=== PATIENT | female | born 1940 | race Caucasian/White ===

== ENCOUNTER → 2017-02-06 | Outpatient (CLI) | payer OTHER, MEDICARE ==
[~2017-02-06] MED LIST: ACET-24 PO; ASPEC325 PO; CALC600T9 PO; FLUT50SP45; LEVO25TA PO; MELO15TA4 PO; ULT50X PO; ZOLP5TAB PO; meloxicam PO
--- NOTE | 2017-02-06 12:09 | DIAGNOSTIC IMAGING REPORT ---
LEG LENGTH STUDY (WHOLE LEG) CLINICAL HISTORY: LEG LENGTH DISCREPANCY COMPARISON STUDY: None FINDINGS: Total leg length right leg is 84.8 cm. Total length left leg is 84.3 cm. Discrepancy is 5 mm with the left leg shorter compared to the right. The bulk of this discrepancy is in the femoral leg length. Right femoral length is 46.8 cm. Left measures 46.3 cm IMPRESSION: 5 mm leg length discrepancy with the left length being shorter. The bulk of this discrepancy relates to a differential of femoral length as discussed Electronically signed by: Phan Napoles M.D. 02/06/2017 12:08 PM Dictated Date/Time: 02/06/2017 11:59 AM
== END | disposition home or self-care (01) ==
LOC: C.RADBC 11:16
PROVIDERS: ATTEND Anesthesiology
DX: M21.70 Unequal limb length (acquired), unspecified site (principal)

== ENCOUNTER 2017-06-30 08:33 | Inpatient (IN) | payer OTHER, MEDICARE ==
[2017-06-05 09:04] VITALS: BMI 22.0
--- NOTE | 2017-06-05 09:48 | PAT Medication Instructions ---
Service Date Jun 05, 2017. Current Home Medication List Calcium Carbonate-Vitamin D (Calcium + D), 1 TAB PO BID Fluticasone Propionate (Nasal) (Allergy Nasal Walling 24 Ho), 2 SPRAYS NA DAILY PRN for allergies Levothyroxine Sodium (Synthroid), 1 TAB PO QAM Meloxicam (Meloxicam), 1 TAB PO QAM Zolpidem Tartrate (Ambien), 5 MG PO HS PRN for Sleep Medication Instructions For Your Scheduled Surgery - Per surgeon's instructions: Meloxicam (Meloxicam), 1 TAB PO QAM - Hold the following medications the morning of surgery: Calcium Carbonate-Vitamin D (Calcium + D), 1 TAB PO BID - Take the following medications the morning of surgery with a sip of water OTHERWISE NOTHING TO EAT OR DRINK AFTER MIDNIGHT: Levothyroxine Sodium (Synthroid), 1 TAB PO QAM Fluticasone Propionate (Nasal) (Allergy Nasal Walling 24 Ho), 2 SPRAYS NA DAILY PRN for allergies - Take the following medications as scheduled the night before surgery: Zolpidem Tartrate (Ambien), 5 MG PO HS PRN for Sleep Calcium Carbonate-Vitamin D (Calcium + D), 1 TAB PO BID Fluticasone Propionate (Nasal) (Allergy Nasal Walling 24 Ho), 2 SPRAYS NA DAILY PRN for allergies If you have any questions please call us at [phone] or [phone] or [phone]
[2017-06-05 10:13] LABS: BASO % 1.3 %; BASO ABS # 0.09 K/uL (0-0.2); COMPLETE YES; EOS % 5.2 %; HEMATOCRIT 45.4 % (37-47); IG% 0.4 %; LYMPH % 26.8 %; LYMPH ABS # 1.85 K/uL (1.2-3.4); MEAN CELL VOLUME 92.8 fL (80-100); MEAN CORPUSCULAR HEMOGLOBIN 29.7 pg (25-34); MEAN CORPUSCULAR HGB CONC 31.9 g/dl (32-36); MEAN PLATELET VOLUME 9.2 fL (7.4-10.4); MONO % 8.8 %; NEUT % 57.5 %; PLATELET COUNT 371 K/uL (130-400); RED BLOOD COUNT 4.89 M/uL (4.2-5.4); WHITE BLOOD COUNT 6.91 K/uL (4.8-10.8)
--- NOTE | 2017-06-05 10:23 | DIAGNOSTIC IMAGING REPORT ---
TWO VIEW CHEST CLINICAL HISTORY: Preoperative examination. FINDINGS: PA and lateral chest radiographs are obtained. No prior studies are available for comparison at the time of dictation. The cardiomediastinal silhouette is unremarkable. There is mild atherosclerotic calcification of the thoracic aorta. The lungs and pleural spaces are clear. There is no pneumothorax. The skeletal structures are osteopenic. There is moderate S-shaped thoracolumbar scoliosis. IMPRESSION: No active disease in the chest. Electronically signed by: Bart Bower M.D. 06/05/2017 10:22 AM Dictated Date/Time: 06/05/2017 10:21 AM
[2017-06-05 10:32] LABS: PROTHROMBIN TIME (PATIENT) 10.4 SECONDS (9.0-12.0)
[2017-06-05 12:00] LABS: BUN/CREATININE RATIO 27.8 (10-20); CALCIUM 9.1 mg/dl (8.5-10.1); CREATININE 0.74 mg/dl (0.60-1.20); POTASSIUM 4.5 mmol/L (3.5-5.1)
--- NOTE | 2017-06-21 16:09 | HISTORY & PHYSICAL EXAMINATION ---
DATE OF ADMISSION: 06/30/2017 CHIEF COMPLAINT: Left knee pain. HISTORY OF PRESENT ILLNESS: This is a 76-year-old female who presents for surgical treatment of her left knee. She is referred by my partner Dr. Chapman. She has got a fairly long history of left knee problems. I did an I&D of a hemorrhagic prepatellar bursitis back in 2001. Over the past several years, she developed increased pain and discomfort in her left knee. She describes global pain. The more she is on it, the more it hurts. She is not interested in injection treatment. Medicines helped her minimally. It is affecting her lifestyle. She would like her left knee fixed. PAST MEDICAL HISTORY: Significant for: 1. Elevated cholesterol. 2. Hypothyroidism. 3. Gastroesophageal reflux disease. PAST SURGICAL HISTORY: Includes: 1. Hysterectomy. 2. Left prepatellar bursa I&D back on 04/06/2002. ALLERGIES: None. CURRENT MEDICATIONS: 1. Synthroid. 2. Baby aspirin. 3. Meloxicam. SOCIAL HISTORY: A 76-year-old female. Relatively healthy. Does not smoke. FAMILY HISTORY: Noncontributory. REVIEW OF SYSTEMS: Negative for diabetes, neurologic problems, vascular problems, or bleeding disorders. Denies any chest pain. No shortness of breath. No history of DVT or PE. PHYSICAL EXAMINATION: GENERAL: Reveals a pleasant elderly female. She looks to be in good health. HEENT: Benign. NECK: Supple. No lymphadenopathy. LUNGS: Clear to auscultation. HEART: Regular rate and rhythm. ABDOMEN: Soft, nontender, and nondistended. EXTREMITIES: Grossly neurovascularly intact except as follows: Examination of left knee reveals the patient walks independently. Fairly neutral alignment to her knee. She has got a well-healed incision from her anterior prepatellar bursa I&D. Small knee effusion. Range of motion is 0-125. No instability. No pain with hip motion. X-RAYS: X-rays of the left knee were reviewed. It shows advanced left knee tricompartmental DJD. She has got some joint space remaining, but extensive osteophytes in all 3 compartments. She has near complete loss of the joint space on the 45 degree flexion films, particularly laterally. She has got significant patellofemoral arthritis. ASSESSMENT: A 76-year-old white female with advanced left knee tricompartmental degenerative joint disease. She is not interested in further conservative treatment and would like to have her left knee fixed. PLAN: We will take her to the operating room and do a left total knee replacement. The risks and benefits of this procedure were explained to the patient including, but not limited to DVT, PE, , infection, neurological injury, vascular injury, bleeding problem, pain, limited range of motion, stiffness, failure to relieve symptoms, incomplete relief of symptoms, need for further surgery in the future, fracture, leg length inequality, nerve palsy, persistent pain, incomplete relief of symptoms, need for blood transfusion, etc. The patient understands and desires to proceed. Informed consent was obtained. As far as discharge plans, she is planning to be discharged to home using the [facility] home health program.
[~2017-06-30] VITALS: Ht 165.1 cm; Wt 61.8 kg
[2017-06-30] VITALS (8 sets, daily range): BP systolic 95–138; BP diastolic 60–88; PULSE 57–78; TEMP 33.3–36.8; O2SAT 94–100; Ht 165.1 cm; Wt 61.8 kg
[~2017-06-30 08:33] MED LIST changes: -ACET-24 PO; +ACETAMINOPHEN 500 MG TAB PO SCH; -ASPEC325 PO; +BUPIVACAINE 0.25% 30 ML VIAL ONE; +BUPIVACAINE 0.5 % 5 MG/1 ML PF 10ML VIAL ONE; +BUPIVACAINE LIPOSOME 266 MG, BUPIVACAINE/EPINEPHRINE INJ 50 ML, SODIUM CHLORIDE 0.9% PF... INFIL SCH; +CEFAZOLIN 2000 MG/60 ML D5W 60 ML IV SCH; +CLONIDINE HCL 0.1 MG/24 HR TRANSDERM SYS TD SCH; +FAMOTIDINE 20 MG TAB PO SCH; +FENTANYL CITRATE INJ 50 MCG/1 ML 2 ML VIAL ONE; +GABAPENTIN 300 MG CAP PO SCH; +LACTATED RINGER'S 1000ML 1,000 ML IV SCH; +LACTATED RINGER'S 1000ML 500 ML IV ONE; +LACTATED RINGER'S 1000ML IV SCH; +METOCLOPRAMIDE HCL 10 MG TAB PO SCH; +MIDAZOLAM HCL 1 MG/ML 2ML VIAL ONE; +SCOPOLAMINE 1.5 MG TDSY TD SCH; -ULT50X PO; -meloxicam PO
--- NOTE | 2017-06-30 08:44 | History & Physical Bridge Note ---
H&P Re-Evaluation Bridge Note: I have examined the patient, reviewed the History & Physical and in the interval since the performance of the History & Physical I have noted the following changes of clinical significance: No changes noted
[2017-06-30] MEDS ORDERED: FENTANYL CITRATE INJ 50 MCG/1 ML 2 ML VIAL IV PRN (09:15)
[2017-06-30] MEDS ORDERED: PHENYLEPHRINE 100MCG/ML 5ML SYR IV PRN (09:15)
[2017-06-30] MEDS ORDERED: ONDANSETRON INJ 2 MG/ML 2 ML VIAL IV PRN ×2 (09:15→12:15)
[2017-06-30] MEDS ORDERED: HYDROmorphone INJ 1 MG/ML SYR IV PRN (09:15)
[2017-06-30] MEDS ORDERED: EpHEDrine SULFATE INJ 50 MG/ML AMP IV PRN (09:15)
[2017-06-30] MEDS ORDERED: ATROPINE SULFATE 0.1 MG/ML 5ML SYR IV PRN (09:15)
[2017-06-30] MEDS: TRANEXAMIC ACID INJ 1,000 MG in SODIUM CHLORIDE 0.9% 100ML 100 ML IV SCH ×2 (09:16→11:42)
[2017-06-30] MEDS ORDERED: SODIUM CHLORIDE 0.9% PF 50 ML VIAL ONE (10:25)
[2017-06-30] MEDS ORDERED: BUPIVACAINE LIPOSOME 1/3% 266 MG/20 ML VIAL INFIL ONE (10:25)
[2017-06-30] MEDS ORDERED: BUPIVACAINE/EPINEPHRINE 0.25% 1:200,000 30 ML VIAL ONE (10:25)
[2017-06-30] MEDS ORDERED: BACITRACIN 50000 UNIT VIAL ONE (10:25)
[2017-06-30] MEDS ORDERED: PROPOFOL IV EMULSION 10 MG/ML 20 ML VIAL IV ONE (10:41)
[2017-06-30] MEDS ORDERED: EpHEDrine SULFATE 50MG/5ML SYR ONE (10:41)
--- NOTE | 2017-06-30 12:11 | [facility] Post Operative Brief Note ---
Immediate Operative Summary Operative Date Jun 30, 2017. Pre-Operative Diagnosis Left knee degenerative joint disease Post-Operative Diagnosis Left knee degenerative joint disease Procedure(s) Performed Left total knee arthroplasty, cemented Surgeon Dr. Rizzo Placer Miner Surgeon(s) Shadi Rogers PA-C Estimated Blood Loss 50 mL Findings Left Knee DJD Specimens A: Left knee bone and tissue Drains None Anesthesia Spinal Complication(s) None Disposition Recovery Room / PACU
[2017-06-30] MEDS ORDERED: BISACODYL 10 MG SUPP PR PRN (12:15)
[2017-06-30] MEDS ORDERED: SILVER SULFADIAZINE 1% CR 50 GM JAR EXT PRN (12:15)
[2017-06-30] MEDS ORDERED: ZOLPIDEM TARTRATE 5 MG TAB PO PRN ×2 (12:15)
[2017-06-30] MEDS ORDERED: FLUTICASONE PROPIONATE NA SPR 16 GM BTL PRN (12:15)
[2017-06-30] MEDS ORDERED: HYDROmorphone INJ 0.5 MG/0.5 ML SYR IV PRN (12:15)
[2017-06-30] MEDS ORDERED: METOCLOPRAMIDE HCL INJ 5 MG/ML 2 ML VIAL IV PRN (12:15)
[2017-06-30] MEDS ORDERED: CEFAZOLIN IV 1,000 MG in DEXTROSE 5% 50ML 50 ML IV SCH (12:15)
[2017-06-30] MEDS ORDERED: ALUMINUM/MAGNESIUM/SIMETH (MAALOX MAX) 30 ML UDC PO PRN (12:15)
[2017-06-30] MEDS ORDERED: MAGNESIUM HYDROXIDE SUSP 30 ML UDC PO PRN (12:15)
--- NOTE | 2017-06-30 12:47 | Anesthesiology Progress Note ---
Anesthesia Post Op Note Date & Time Jun 30, 2017 at 12:47 Vital Signs Pain Intensity: 2 Vital Signs Past 12 Hours Date Time Temp Pulse Resp B/P (MAP) Pulse Ox O2 Delivery O2 Flow Rate FiO2 06/30/17 12:40 58 12 98/57 100 Nasal Cannula 2 06/30/17 12:30 58 13 93/55 98 Nasal Cannula 2 06/30/17 12:20 63 16 86/53 99 Nasal Cannula 2 06/30/17 12:13 36.0 66 14 93/57 97 Nasal Cannula 2 06/30/17 08:56 36.7 60 20 138/88 97 Room Air Notes Mental Status: alert / awake / arousable, participated in evaluation Pt Amnestic to Procedure: Yes Nausea / Vomiting: adequately controlled Pain: adequately controlled Airway Patency, RR, SpO2: stable & adequate BP & HR: stable & adequate Hydration State: stable & adequate Neuraxial Anesthesia: was administered, sensory block is resolving Anesthetic Complications: no major complications apparent
--- NOTE | 2017-06-30 12:56 | DIAGNOSTIC IMAGING REPORT ---
LEFT KNEE 2 VIEWS CLINICAL HISTORY: Degenerative arthritis COMPARISON: None. DISCUSSION: There are postsurgical changes of a total left knee arthroplasty and patellar resurfacing. The femoral and tibial components appear well seated. There are overlying skin william. There is air within soft tissues consistent with recent surgery IMPRESSION: Postsurgical changes of a total left knee arthroplasty. Electronically signed by: Percy Varela M.D. 06/30/2017 12:54 PM Dictated Date/Time: 06/30/2017 12:54 PM
--- NOTE | 2017-06-30 13:23 | OPERATIVE REPORT ---
DATE OF OPERATION: 06/30/2017 PREOPERATIVE DIAGNOSIS: Left knee degenerative joint disease. POSTOPERATIVE DIAGNOSIS: Same. PROCEDURE PERFORMED: Left cemented posterior stabilized total knee arthroplasty. SURGEON: Manjit Rizzo M.D. PROPELLANT ASSEMBLER: Shadi Rogers PA-C. COMPLICATIONS: None. ESTIMATED BLOOD LOSS: 50 mL. FLUID REPLACEMENT: 1200 mL crystalloid fluid replacement. ANESTHESIA: Spinal with adductor canal block. DRAINS: None. SPECIMENS: Left knee sent for pathology. TOURNIQUET TIME: 55 minutes at 300 mmHg. OPERATIVE INDICATIONS: The patient is a 76-year-old white female who has had a fairly long history of left knee pain and discomfort. Things have just gotten worse over time and became more unbearable and really affecting her quality of life. She has been through conservative care without much relief. She was ready to have her knee replaced and did not want any further conservative management. OPERATIVE FINDINGS: Operative findings revealed advanced left knee DJD. She had extensive grade 4 changes of the lateral compartment as well as patellofemoral compartment. She did have spotty grade 4 changes in the medial compartment. Moderate-sized knee joint effusion. She had an unusual appearance to her knee, it was kind of a valgus knee, but pretty significant medial sided wear. Moderate size effusion. She did have diffuse osteopenia in the medial compartment. OPERATIVE IMPLANTS: Operative implants consisted of: 1. A Biomet Vanguard size 62.5 left posterior stabilized femoral component. 2. Biomet size 67 tibial tray. 3. A 12 mm posterior stabilized polyethylene insert. 4. A 28 x 8 all poly patella. OPERATIVE PROCEDURE: The patient taken to the operating room, identified and placed on the operating table in supine position. All contact areas were appropriately padded. IV antibiotics provided by anesthesia team. A spinal anesthetic and adductor canal block had been provided in the holding area. Shelton catheter was placed in sterile fashion. A left thigh tourniquet was then placed and left lower extremity was then prepped and draped in the usual sterile fashion. Left leg was elevated and exsanguinated with Esmarch and tourniquet was placed at 300 mmHg. An anterior approach of the left knee was then performed through a longitudinal incision centered over the patella. Sharp dissection was carried through the subcutaneous tissues down to the level of the extensor mechanism. A medial parapatellar arthrotomy incision was made. Some subperiosteal dissection was carried out medially. The fat pad was resected from beneath the patellar tendon. The lateral patellofemoral ligament was released. The patella was everted and knee was flexed. The osteophytes were taken off the distal femur. The ACL and PCL were then released from the distal femur and the tibia was subluxated anteriorly. The external tibial alignment jig was then placed in the anterior face of the tibia and adjusted 12 mm medially. Proximal tibial cut was made to remove about 3-4 mm of bone from the medial side. The tibia was sized to a size 67. Some osteophytes were taken off medial and posteromedially. Attention was then drawn to the femur. The distal femur was entered with a sharp drill. Intramedullary canal was suctioned. A left 5 degree valgus cutting guide was placed. Distal femoral cutting block was pinned in place. Distal femoral cut was made to take an additional 3 mm of bone off the distal femur. The femur was then sized to a size 62.5. We did downsize this almost an entire size to the small medial lateral dimensions. The AP cutting block was pinned parallel to the epicondylar axis, which was 6 degrees of external rotation. The anterior cut, anterior chamfer, posterior cut, posterior chamfer cuts were made. Box cutting guide was placed and adjusted slightly lateral and the box cut was made. The knee was flexed. The remnants of the medial and lateral meniscus were excised. The osteophytes were taken off the posterior aspect of the femur. The knee was brought out into extension and the extension gap was equal. The knee was then flexed. It was a little tight laterally, so I did release the popliteus, which equalized the flexion gap. The trial femoral component was placed. Tibial tray was pinned in maximum external rotation and the drill and stem punch were used to create defect in proximal tibia for the tibial tray. The knee was then trialed and the 12 mm insert fit most appropriately. Attention was then drawn to patella. The patella was cleaned of all soft tissues. Patellar thickness measured 20 mm, cut down to 13. It was sized to a size 28 patella. Lug holes were drilled for the 28 patella. Lateral osteophyte was removed. Patella button was placed. Knee was taken through range of motion and the patella tracked nicely with no thumbs test. Attention was then drawn toward placement of permanent components. All trial components were removed. A bone plug was placed in the distal femur to limit blood loss. A double batch of Palacos G cement was mixed. A left size 62.5 posterior stabilized femoral component, size 67 tibial tray, 12 mm posterior stabilized polyethylene insert, 28 x 8 all poly patella were then cemented in place. Knee was brought out into full extension until cement hardened. A final cement check was then performed. Pericapsular tissues were injected with a total of 100 mL of a combination of 20 mL of Exparel, 30 mL of normal saline, 50 mL of 0.25% Marcaine with epinephrine. The patient did receive 1 gram of tranexamic acid. The tourniquet was let down for final tourniquet time of 55 minutes. Hemostasis was assured with use of electrocautery. The extensor mechanism was then closed with a combination of #1 PDS suture and #1 Vicryl suture in a [id number] fashion. Extensor mechanism was checked and found to be intact. The subcutaneous tissues were then closed with 2-0 Dexon suture in a buried interrupted fashion. Skin was closed with skin william. The leg was then cleaned and dried and a sterile dressing of Xeroform, 4 x 4, sterile cast padding and an Israel bandage were applied. The patient then transferred to the recovery room in stable condition. The patient tolerated the procedure with no complications. All needle and sponge counts were correct at the end of the operation. I attest to the content of the Intraoperative Record and any orders documented therein. Any exception s are noted below.
[2017-06-30] MEDS: D5W AND 1/2NSS + 20MEQ KCL 1,000 ML IV SCH (14:43)
[2017-06-30] MEDS: ACETAMINOPHEN 500 MG TAB PO SCH ×2 (14:44→21:40)
[2017-06-30] MEDS: TRAMADOL HCL 50 MG TAB PO PRN (15:23)
[2017-06-30] MEDS: CHECK SCOPOLAMINE PATCH PLACEMENT SCH (15:33)
[2017-06-30] MEDS: FERROUS GLUCONATE 324 MG TAB PO SCH (17:31)
[2017-06-30] MEDS: KETOROLAC TROMETHAMINE 15 MG/ML VIAL IV. SCH (17:32)
[2017-06-30] MEDS: CEFAZOLIN IV 1,000 MG in SYRINGE 0 ML IV SCH (17:33)
[2017-06-30] MEDS ORDERED: TRANEXAMIC ACID INJ 1,000 MG in SODIUM CHLORIDE 0.9% 100ML 100 ML IV SCH (18:15)
--- NOTE | 2017-06-30 18:53 | PROGRESS NOTE ---
DATE: 06/30/2017 SUBJECTIVE: A 76-year-old white female postop from a left knee replacement. She is doing well. Not had any pain other than just an ache right now. No chest pain or shortness of breath. Not feeling dizzy or lightheaded. OBJECTIVE: VITAL SIGNS: Temperature 36.8. Vital signs stable. GENERAL: Reveals a pleasant elderly female. She is sitting up at her bedside, getting ready to try to do some walking. LUNGS: Clear to auscultation. HEART: Regular rate and rhythm. ABDOMEN: Soft, nontender, nondistended. EXTREMITIES: Grossly neurovascularly intact except as follows: Examination of the left leg reveals the dressing to be clean, dry and intact. Leg is well aligned. She can dorsiflex and plantarflex her foot appropriately. She is neurologically intact. X-RAYS: X-rays of the left knee from recovery room were reviewed. She has a left uncemented left cemented total knee replacement. The components looked to be in good position. No signs of problems. ASSESSMENT: A 76-year-old white female postop from a left total knee replacement, doing well. Pain is controlled. She is neurologically intact. PLAN: 1. DVT prophylaxis including thigh-high TEDs, SCDs, and aspirin twice a day. 2. PT/OT. Weightbearing as tolerated. Left total knee protocol. 3. Pain control, doing well with current pain regimen. 4. IV antibiotics x24 hours. 5. Disposition: Plan to discharge to home with some home health and assistance from her significant other once medically stable.
[2017-06-30] MEDS: DOCUSATE SODIUM 100 MG CAP PO SCH (21:41)
[2017-06-30] MEDS: TAPENTADOL ER 50 MG TABCR PO SCH (21:41)
[2017-06-30] MEDS: ASPIRIN 325 MG ECTAB PO SCH (21:41)
[2017-06-30] MEDS: SENNA 8.6 MG TAB PO SCH (21:41)
[2017-06-30] MEDS: CALCIUM 600MG + VIT D 400 IU TAB PO SCH (21:41)
[2017-07-01] MEDS: CHECK SCOPOLAMINE PATCH PLACEMENT SCH ×4 (00:06→23:39)
[2017-07-01] MEDS: D5W AND 1/2NSS + 20MEQ KCL 1,000 ML IV SCH ×2 (00:08→10:01)
[2017-07-01] MEDS: KETOROLAC TROMETHAMINE 15 MG/ML VIAL IV. SCH ×5 (00:09→23:39)
[2017-07-01] MEDS: CEFAZOLIN IV 1,000 MG in SYRINGE 0 ML IV SCH (02:07)
[2017-07-01 03:18] VITALS: BP 105/68; PULSE 62; TEMP 36.6; O2SAT 97
[2017-07-01] MEDS: ACETAMINOPHEN 500 MG TAB PO SCH ×3 (05:43→21:05)
[2017-07-01] MEDS: LEVOTHYROXINE 25 MCG TAB PO SCH (05:44)
[2017-07-01 06:13] LABS: HEMATOCRIT 35.1 % (37-47); MEAN CELL VOLUME 92.4 fL (80-100); MEAN CORPUSCULAR HEMOGLOBIN 30.5 pg (25-34); MEAN PLATELET VOLUME 9.2 fL (7.4-10.4); PLATELET COUNT 287 K/uL (130-400); WHITE BLOOD COUNT 8.23 K/uL (4.8-10.8)
[2017-07-01 06:43] LABS: BUN/CREATININE RATIO 14.3 (10-20); CALCIUM 8.3 mg/dl (8.5-10.1); CREATININE 0.64 mg/dl (0.60-1.20); POTASSIUM 4.1 mmol/L (3.5-5.1)
[2017-07-01 07:16] VITALS: BP 108/61; PULSE 65; TEMP 36.6; O2SAT 95
[2017-07-01] MEDS: FERROUS GLUCONATE 324 MG TAB PO SCH ×3 (08:54→17:48)
[2017-07-01] MEDS: DOCUSATE SODIUM 100 MG CAP PO SCH ×2 (08:55→21:05)
[2017-07-01] MEDS: MULTIVITAMIN TAB PO SCH (08:55)
[2017-07-01] MEDS: PANTOprazole SOD 40 MG TAB PO SCH (08:55)
[2017-07-01] MEDS: CALCIUM 600MG + VIT D 400 IU TAB PO SCH ×2 (08:55→21:05)
[2017-07-01] MEDS: ASPIRIN 325 MG ECTAB PO SCH ×2 (08:55→21:05)
[2017-07-01] MEDS: TAPENTADOL ER 50 MG TABCR PO SCH ×2 (08:56→21:05)
[2017-07-01 10:35] VITALS: BP 108/72; PULSE 76; O2SAT 99
[2017-07-01 12:33] VITALS: BP 115/73; PULSE 61; TEMP 36.8; O2SAT 93
[2017-07-01] MEDS ORDERED: ULT50X PO (12:56)
[2017-07-01] MEDS ORDERED: ASPEC325 PO (12:56)
[2017-07-01] MEDS ORDERED: ACET-24 PO (12:56)
--- NOTE | 2017-07-01 13:42 | PROGRESS NOTE ---
DATE: 07/01/2017 SUBJECTIVE: A 76-year-old white female postop day 1 from a left knee replacement. She is doing pretty well. Knee is sore, but very manageable. No chest pain or shortness of breath. Not feeling dizzy or lightheaded. OBJECTIVE: VITAL SIGNS: Temperature 36.8. Vital signs stable. PHYSICAL EXAMINATION: GENERAL: Physical examination reveals a pleasant elderly female. She was lying in bed this afternoon and I had to wake her up. She looks comfortable. EXTREMITIES: Examination of the left leg reveals the dressing to be clean, dry and intact. Leg is well aligned. She can dorsiflex and plantarflex her foot appropriately. She is neurologically intact. LABORATORY DATA: Hemoglobin is 11.6. Hematocrit 35.1. Electrolytes are stable. ASSESSMENT: A 76-year-old white female postop day 1 from a left knee replacement, doing well. Pain is controlled. She is neurologically intact. PLAN: 1. DVT prophylaxis including thigh-high TEDs, SCDs, and aspirin twice a day. 2. PT, OT. Weightbearing as tolerated. Left total knee protocol. 3. Pain control, doing well with current pain regimen. 4. Disposition: Plan is to discharge to home with some home health once adequately recovered.
[2017-07-01 15:07] VITALS: BP 96/60; PULSE 71; TEMP 36.7; O2SAT 95
--- NOTE | 2017-07-01 20:42 | Discharge Instructions ---
Discharge Instructions Date of Service Jul 01, 2017. Admission Reason for Admission: Left Knee Degenerative Joint Disease Discharge Discharge Diagnosis / Problem: Left Knee Replacement Discharge Goals Goal(s): Decrease discomfort, Improve function, Increase independence, Improve disease control, Therapeutic intervention Activity Recommendations Activity Limitations: per Instructions/Follow-up section Weightbearing Status: Left weightbearing . Instructions / Follow-Up Instructions / Follow-Up ACTIVITY RECOMMENDATIONS: Physical Therapy: * You will go to physical therapy three times each week for four to six weeks after your surgery in order to regain your knee range of motion and to retrain your knee to work properly. * It is just as important to make sure you are getting your knee perfectly straight as it is to regain your knee bend. * Taking a pain pill an hour before therapy can help you have a more productive and comfortable therapy session. Home Exercise: * You were shown a series of exercises (heel props, heel slides, etc.) in the hospital. Do these exercises three to four times each day including the exercises you were shown in physical therapy. Walking: * Get up and walk several times each day. For the first four weeks, try not to stand or walk for more than one hour at a time. If you do stand or walk for more than one hour, you will not hurt anything, but your knee and leg will likely swell. * As you feel comfortable, you may change from the walker or crutches to a cane and then to independent walking. MEDICATIONS: New Medicine: * You will likely be taking one or more of these medications: 1. Tramadol - A quick and shorter-acting pain medication. Take one to two tablets every four to six hours to lessen your pain. 2. Aspirin - Thins your blood to lessen the chance of forming a blood clot. * The most common side effects of pain medicine and iron are nausea and constipation. If nausea or constipation is too much of a problem or if you have any questions about your new medicines or doses, call [facility] at . We will try to help you manage these issues. VERY IMPORTANT TO READ AND REVIEW" Pain: * The immediate post-operative period after knee replacement surgery is often quite painful. * You are given a prescription for pain medicine. You should take it, as directed, when you need it, especially before physical therapy and before going to bed. Pain that interferes with sleep is very common and can last several months. * You will likely need pain medicine for the first four to six weeks. It will not stop all of the pain. The pain will lessen and as you feel better, you may change to milder pain medicine such as Tylenol. * The most common side effects of pain medicine are nausea and constipation, so don't take more than you need. SPECIAL CARE INSTRUCTIONS: TEDs/Elastic Stockings: * The white elastic stockings help limit swelling and prevent blood clots from forming in your legs. The more you wear them, the more they work. * Wear them for six weeks after knee replacement surgery and four weeks after partial knee replacement. Prevention of Infection: * Take antibiotics one hour before any dental cleaning, dental work, urological procedure, gastrointestinal procedure or any invasive surgery in order to prevent your new joint from getting infected. * You may get the antibiotics from the doctor performing the procedure or you may call our office at before and we will call in a prescription to the pharmacy of your choice. Things to Watch For: * Drainage from the incision site that occurs more than one week after your surgery. * Severely increased knee/leg pain or swelling. * Increased redness at the incision site. * Fever above 102 degrees Fahrenheit. * Unusual chest pain or shortness of breath. * Unusual pain or burning with urination. Call [facility] at with any of the above problems or if you have any questions about your medicines or recovery. FOLLOW UP VISIT: Make an appointment to see your doctor for approximately two weeks after surgery for a progress check and staple removal by calling the office at . Current Hospital Diet Patient's current hospital diet: Regular Diet Discharge Diet Recommended Diet: Regular Diet Procedures Procedures Performed: Left total knee arthroplasty, cemented Pending Studies Studies pending at discharge: no Medical Emergencies . Who to Call and When: Medical Emergencies: If at any time you feel your situation is an emergency, please call [phone] immediately. . Non-Emergent Contact Non-Emergency issues call your: Surgeon . "Provider Documentation" section prepared by Manjit Rizzo. . VTE Core Measure Inpt VTE Proph given/why not?: Other Anticoagulation, T.E.D. Stockings, SCD's
[2017-07-01] MEDS: SENNA 8.6 MG TAB PO SCH (21:05)
[2017-07-01] MEDS: TRAMADOL HCL 50 MG TAB PO PRN (21:06)
[2017-07-01 23:36] VITALS: BP 114/68; PULSE 76; TEMP 36.8; O2SAT 93
[2017-07-02] MEDS: LEVOTHYROXINE 25 MCG TAB PO SCH (05:38)
[2017-07-02] MEDS: ACETAMINOPHEN 500 MG TAB PO SCH (05:39)
[2017-07-02] MEDS: KETOROLAC TROMETHAMINE 15 MG/ML VIAL IV. SCH (05:40)
[2017-07-02] MEDS: CHECK SCOPOLAMINE PATCH PLACEMENT SCH (07:47)
--- NOTE | 2017-07-02 07:47 | PROGRESS NOTE ---
DATE: 07/02/2017 SUBJECTIVE: 76-year-old white female postop day 2 from a left knee replacement. She is doing well. Pain is controlled. No chest pain or shortness of breath. Not feeling dizzy or lightheaded. OBJECTIVE: Temperature 36.8. Vital signs stable. PHYSICAL EXAMINATION: GENERAL: Reveals a healthy pleasant, middle-aged female. She is sitting up in bed and looks comfortable. EXTREMITIES: Examination of the left leg reveals dressing to be clean, dry and intact. She can dorsiflexion and plantar flex her foot appropriately. She is neurologically intact. ASSESSMENT: 76-year-old postop day 2 from a left knee replacement, doing well. PLAN: 1. DVT prophylaxis including thigh-high TEDs, SCDs and aspirin twice a day. 2. PT/OT. Weight bear as tolerated. Left total knee protocol. 3. Pain control, doing well with current pain regimen. 4. Disposition: Plan to discharge to home with some health after therapy.
[2017-07-02 07:55] VITALS: BP 114/68; PULSE 76; TEMP 36.8; O2SAT 93
[2017-07-02 08:00] VITALS: BP 112/62; PULSE 71; TEMP 36.7; O2SAT 95
[2017-07-02] MEDS: PANTOprazole SOD 40 MG TAB PO SCH (09:12)
[2017-07-02] MEDS: MULTIVITAMIN TAB PO SCH (09:12)
[2017-07-02] MEDS: DOCUSATE SODIUM 100 MG CAP PO SCH (09:12)
[2017-07-02] MEDS: FERROUS GLUCONATE 324 MG TAB PO SCH (09:12)
[2017-07-02] MEDS: CALCIUM 600MG + VIT D 400 IU TAB PO SCH (09:12)
[2017-07-02] MEDS: ASPIRIN 325 MG ECTAB PO SCH (09:12)
[2017-07-02] MEDS: TRAMADOL HCL 50 MG TAB PO PRN (09:16)
[2017-07-02] MEDS: TAPENTADOL ER 50 MG TABCR PO SCH (09:16)
--- NOTE | 2017-07-13 14:52 | DISCHARGE SUMMARY ---
ADMITTING PHYSICIAN AND SURGEON: Manjit Rizzo MD. ADMITTING DIAGNOSIS: Left knee degenerative joint disease. SURGERY PERFORMED: Left total knee arthroplasty. SECONDARY DIAGNOSES: Include elevated cholesterol, hypothyroidism, gastroesophageal reflux disease. CONSULTS: None obtained. HISTORY AND PHYSICAL EXAMINATION: Well documented in the patient's chart. HOSPITAL COURSE: The patient was admitted on 06/30/2017, underwent total knee arthroplasty, tolerated the procedure well. There were no complications. She was transferred to the PACU postoperatively and later to the orthopedic floor for further care. She was given Ancef for antibiotic prophylaxis, MIGUEL stockings, SCDs and aspirin for DVT prophylaxis. Hemoglobin, hematocrit and vital signs were monitored during her hospital stay and remained stable. She did not require any blood transfusions. There were no complications. By postoperative day 2, she was tolerating a general diet, pain was controlled with oral pain medicine. She was participating in physical therapy and had no signs or symptoms of deep vein thrombosis. On postoperative day 2, she was discharged home and set up with home health services. She was given printed discharge instructions including new prescriptions for extra strength Tylenol, aspirin 325 mg b.i.d. and tramadol. Continue her home medications, continue physical therapy, weightbearing as tolerated, MIGUEL stockings. Follow up in 10-12 days or sooner if are any problems or concerns.
== END 2017-07-02 11:45 | disposition home health service (06) | DRG 470 ==
LOC: C.ACU 08:33 → C.3E 08:48 → ENRESERV 12:51
PROVIDERS: ADMIT Orthopaedic Surgery Sports Medicine; ATTEND Orthopaedic Surgery Sports Medicine
PROC: 0SRD0J9 Replacement of Left Knee Joint with Synthetic Substitute, Cemented, Open Approach (ICD-10-PCS; principal; 2017-06-30 10:50)
DX: M17.12 Unilateral primary osteoarthritis, left knee (principal); E78.5 Hyperlipidemia, unspecified; E03.9 Hypothyroidism, unspecified; K21.9 Gastro-esophageal reflux disease without esophagitis; Z79.82 Long term (current) use of aspirin